=== PATIENT | female | born 1975 | race Caucasian/White ===

== ENCOUNTER → 2022-08-11 09:30 | Outpatient (BNVA) | payer BC, SELFPAY | PROVIDERS: Visit Provider Physician Assistant Surgical | DX: Z13.89 Encounter for screening for other disorder (principal) ==

== ENCOUNTER 2022-08-18 06:54 | Outpatient (REF) | payer BC, SELFPAY ==
--- NOTE | ~2022-08-18 | XR_ITS ---
EXAMINATION: XR CHEST 2 VIEWS CLINICAL INFORMATION: Cough. COMPARISON: None. TECHNIQUE: Frontal and lateral views of the chest were obtained. FINDINGS: The heart, great vessels, pulmonary vasculature and mediastinum are normal. The lungs show no focal infiltrate, effusion or pneumothorax. There is no acute osseous abnormality. XR/XR chest 2V IMPRESSION: No active cardiopulmonary disease.
--- NOTE | 2022-08-18 07:01 | ECG_ITS ---
Test Reason : e66.9 Blood Pressure : / mmHG Vent. Rate : 074 BPM Atrial Rate : 074 BPM P-R Int : 136 ms QRS Dur : 092 ms QT Int : 410 ms P-R-T Axes : 022 058 020 degrees QTc Int : 455 ms Normal sinus rhythm Normal ECG No previous ECGs available Referred By: Gregory Hardy Electronically Signed By:Howie San
[2022-08-18 07:12] LABS: MANUAL DIFF FLAG NO
[2022-08-18 07:43] LABS: Basophils Percent Auto 0.5 % (0-2); Eosinophils Absolute Auto 0.2 X10*3/uL (0.0-0.4); Eosinophils Percent Auto 4.6 % (0-4); Hematocrit 41.4 % (37.0-47.0); Imm Gran Abs Auto 0.01 X10*3/uL (0.00-0.03); Imm Gran Pct Auto 0.3 % (0.0-0.4); Lymphocytes Percent Auto 25.3 % (20-40); Mean Corpuscular HGB Conc 33.8 g/dl (31.0-35.0); Mean Corpuscular Hemoglobin 28.6 pg (27.0-33.0); Mean Corpuscular Volume 84.5 fL (80.0-98.0); Mean Platelet Volume 9.1 fL (9.4-12.3); Monocytes Absolute Auto 0.5 X10*3/uL (0.1-1.2); Monocytes Percent Auto 12.6 % (2-11); Neutrophils Absolute Auto 2.2 x10*3/uL (2.0-8.3); Neutrophils Percent Auto 56.7 % (45-73); Platelet Count 186 X10*3/uL (160-400); Red Cell Distribution Width 12.5 % (11.0-16.0); White Blood Count 3.9 X10*3/uL (4.8-10.8)
[2022-08-18 07:57] LABS: Estimated Average Glucose 114 mg/dL; Hemoglobin A1c % 5.6 %
[2022-08-18 08:19] LABS: Alanine Aminotransferase 52 U/L (0-31); Albumin Level 4.6 g/dL (3.5-5.0); Alkaline Phosphatase 48 U/L (39-117); Anion Gap 15 (12-20); Aspartate Amino Transferase 34 U/L (5-31); Bilirubin Total 0.7 mg/dL (0.0-1.0); Blood Urea Nitrogen 14 mg/dL (9-16); C Reactive Protein 0.26 mg/dL (< or = 0.50); Calcium 9.4 mg/dL (8.4-10.2); Carbon Dioxide 27 mmol/L (22-29); Chloride 100 mmol/L (96-108); Cholesterol 140 mg/dL; Estimated Glomerular Filt Rate > 60; Glucose Random 107 mg/dL (60-115); HDL Cholesterol 45 mg/dL; Iron 85 mcg/dL (30-160); LDL Cholesterol Calculated 83 mg/dl; Percent Iron Saturation 27 % (15-50); Potassium 3.5 mmol/L (3.3-5.1); Sodium 138 mmol/L (135-145); Total Iron Binding Capacity 310 mcg/dL (228-428); Total Protein 6.8 g/dL (6.5-8.0); Triglycerides 62 mg/dL; Unsaturated Iron Binding 225 ug/dL
[2022-08-18 08:52] LABS: Ferritin 343 ng/mL (10-250); Folate 14.6 ng/mL (> or = 4.0); Insulin 6 uU/mL (2-29); TSH reflex Free T4 0.94 uIU/mL (0.32-4.0); Vitamin B12 487 pg/mL (200-900)
[2022-08-21 14:04] LABS: Calcium (PTHI) 9.8 mg/dL (8.6-10.2); PTHI 19 pg/mL (16-77)
[2022-08-22 17:28] LABS: Zinc 95 mcg/dL (60-130)
[2022-08-24 06:04] LABS: Vitamin A 48 mcg/dL (38-98)
[2022-08-25 16:59] LABS: Vitamin B1 7 nmol/L (8-30)
== END 2022-08-18 06:55 | disposition home or self-care (01) ==
LOC: HO.XRAY 06:54
PROVIDERS: PCP Internal Medicine; Visit Provider Physician Assistant Surgical
DX: E66.9 Obesity, unspecified (principal); I10 Essential (primary) hypertension
CPT/HCPCS: 36415; 71046; 80053; 80061; 82306; 82607; 82728; 82746; 83036; 83525; 83540; 83970; 84425; 84443; 84590; 84630; 85025; 86140; 93005

== ENCOUNTER → 2022-08-28 10:20 | Outpatient (BNVA) | payer BC, SELFPAY | PROVIDERS: PCP Internal Medicine; Visit Provider Physician Assistant Surgical | DX: Z13.89 Encounter for screening for other disorder (principal) ==

== ENCOUNTER → 2022-09-11 09:20 | Outpatient (BNVA) | payer BC, SELFPAY | PROVIDERS: PCP Internal Medicine; Referring Provider Physician Assistant Surgical; Visit Provider Dietitian, Registered | DX: E66.9 Obesity, unspecified (principal); Z71.3 Dietary counseling and surveillance | CPT/HCPCS: 97802 ==

== ENCOUNTER → 2022-09-20 13:50 | Outpatient (BNVA) | payer BC, SELFPAY | PROVIDERS: PCP Internal Medicine; Visit Provider Physician Assistant Surgical | DX: Z13.89 Encounter for screening for other disorder (principal) ==

== ENCOUNTER → 2022-10-04 14:38 | Outpatient (BNVA) | payer BC, SELFPAY | PROVIDERS: PCP Internal Medicine; Visit Provider Dietitian, Registered | DX: E66.9 Obesity, unspecified (principal); Z68.33 Body mass index [BMI] 33.0-33.9, adult; Z71.3 Dietary counseling and surveillance | CPT/HCPCS: 97803 ==

== ENCOUNTER → 2022-11-01 08:23 | Outpatient (BNVA) | payer BC, SELFPAY | PROVIDERS: PCP Internal Medicine; Referring Provider Internal Medicine; Visit Provider Physician Assistant Surgical ==

== ENCOUNTER 2022-12-19 08:26 | Outpatient (AMB) | payer BC, SELFPAY ==
[2022-12-19 08:41] VITALS: BMI 31.4
--- NOTE | 2022-12-19 08:41 | MHC.AMNUTRGE ---
Intake VS Expanded 12/19/22 08:41 Height 5 ft 5 in Weight 189 lb BMI 31.4 Body Fat 69.4 Body Fat Percentage 36.8 Muscle Mass 113.6 Visceral Mass 8 Water Mass 85.0 BMR 1,630 Intake Visit Reasons: (ov) F/U [facility] Allergies cephalexin [From Keflex] Allergy (Intermediate, Verified 11/01/22 08:32) hives promethazine [From Phenergan] Adverse Reaction (Intermediate, Verified 11/01/22 08:32) twitching HPI Nutrition Presentation Details [employer] weight 220# Current weight 189# This is patient's last appointment in Medical weight Loss program. She has lost 31 lb since beginning our program. pts goal weight 160# Reason for consult elevated BMI Diet Assmnt Details 2 shakes Pure protein (1 scoop in almond milk) 1 yogurt with berries and 1 meal (chicken, steak, and vegetables) Patient would like to continue her above nutrition plan but have options for variety when she chooses to. Discussed how to balance plate for weight management. Exercise: This is an area I know I need to improve on She is a [employer] nurse. Dietary counseling reduction Diagnosis Nutrition problem #1 overweight/obesity As related to (etiology) #1 excess energy intake and physical inactivity As evidenced by (sign/symptom) #1 high BMI (Improving) Monitoring/Goals Nutrition problem monitoring total energy intake, level of knowledge/skill, total PRO intake, total CHO intake, weight and oral fluids Outcome progress progressing Learning/Education Readiness to learn excellent Stages of change action Educational materials provided Yes Most Recent Diabetes Results: Cholesterol 140 mg/dL 08/18/22 HDL Cholesterol 45 mg/dL 08/18/22 Triglycerides 62 mg/dL 08/18/22 Creatinine 0.82 mg/dL (0.5-1.4) 08/18/22 Blood Urea Nitrogen 14 mg/dL (9-16) 08/18/22 Sodium 138 mmol/L (135-145) 08/18/22 Potassium 3.5 mmol/L (3.3-5.1) 08/18/22 Chloride 100 mmol/L (96-108) 08/18/22 Carbon Dioxide 27 mmol/L (22-29) 08/18/22 Calcium 9.4 mg/dL (8.4-10.2) 08/18/22 AST 34 U/L (5-31) H 08/18/22 ALT 52 U/L (0-31) H 08/18/22 Total Protein 6.8 g/dL (6.5-8.0) 08/18/22 Albumin 4.6 g/dL (3.5-5.0) 08/18/22 PFSH Surgical History Hx of adenoidectomy Hx of cholecystectomy Hx of hysterectomy Hx of tonsillectomy Family History Mother Hypertension Sleep apnea Arthritis Father Diabetes Hypertension Brother Hypertension Sleep apnea Daughter No problems noted. Daughter No problems noted. Social History Alcohol intake: current Alcohol intake frequency: holidays/special occasions only Patient Tobacco Use Status: Never used Tobacco Assessment & Plan Assessment & Plan (1) Obesity (BMI 30-39.9): Code(s): E66.9 - Obesity, unspecified Patient Instructions: This was patient's last appointment in the medical weight loss program. We discussed a healthy diet for continued weight loss outside the program and for weight maintenance. 20-30 g of protein per meal 3-4 meals per day. Can always use a shake or bar if she has little time to eat. Encouraged continuing to increase exercise. Coding Level of Care Code Nutr Indiv Subseq (01665) Diagnoses Obesity (BMI 30-39.9) E66.9 Time Spent (min) 30 Comment In office
== END 2022-12-19 09:06 | disposition home or self-care (01) ==
PROVIDERS: PCP Internal Medicine; Visit Provider Dietitian, Registered
DX: E66.9 Obesity, unspecified (principal)

== ENCOUNTER → 2022-12-19 08:26 | Outpatient (BNVA) | payer BC, SELFPAY | PROVIDERS: PCP Internal Medicine; Visit Provider Dietitian, Registered | DX: E66.9 Obesity, unspecified (principal); Z71.3 Dietary counseling and surveillance; Z68.44 Body mass index [BMI] 60.0-69.9, adult | CPT/HCPCS: 97803 ==